=== PATIENT | male | born 2000 | race Caucasian/White ===

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

== ENCOUNTER → 2021-03-03 | Outpatient (CLI) | payer BC | LOC: COL.RAD 07:10 | DX: G95.89 Other specified diseases of spinal cord (principal); M48.04 Spinal stenosis, thoracic region; Q06.4 Hydromyelia | CPT/HCPCS: A9575 ==

== ENCOUNTER 2021-09-17 21:27 | Inpatient (IN) | payer BC ==
[~2021-09-17] VITALS: Ht 172.7 cm; Wt 73.2 kg
[2021-09-17 21:54] LABS: COLLECTION METHOD CLEAN CATCH
[2021-09-17 21:58] LABS: ALANINE AMINOTRANSFERASE 20 U/L (0-55); ALBUMIN 4.9 gm/dL (3.5-5.0); ALKALINE PHOSPHATASE 113 U/L (40-150); ANION GAP 17 mmol/L (7-16); AST,SGOT 27 U/L (5-34); BILIRUBIN,TOTAL 1.1 mg/dL (0.2-1.2); BLOOD UREA NITROGEN 11 mg/dL (9-21); CARBON DIOXIDE 20 mmol/L (22-29); CHLORIDE 106 mmol/L (98-107); CREATININE, serum 1.11 mg/dL (0.72-1.25); GLUCOSE 141 mg/dL (70-99); POTASSIUM 4.1 mmol/L (3.5-4.5); SODIUM 143 mmol/L (136-145); TOTAL PROTEIN 8.5 gm/dL (6.2-8.1)
[2021-09-17 21:59] LABS: ACETAMINOPHEN < 1.0 ug/mL (10-30); ALCOHOL(ethanol),MEDICAL < 10 mg/dL (0-10); SALICYLATE < 5.0 mg/dL (15.0-30.0)
[2021-09-17 22:03] LABS: MUCOUS Present (NOT PRESENT); PH 5 (5-8); SQUAMOUS EPITHELIAL None Seen /hpf (0-10); URINE APPEARANCE Clear (CLEAR/HAZY); URINE BACTERIA None Seen /hpf (NONE SEEN); URINE BILIRUBIN Negative (NEGATIVE); URINE BLOOD Negative (NEGATIVE); URINE COLOR Yellow (YELLOW); URINE GLUCOSE Negative (NEGATIVE); URINE KETONE Negative (NEGATIVE); URINE LEUKOCYTE ESTERASE Negative (NEGATIVE); URINE NITRATE Negative (NEGATIVE); URINE PROTEIN(semi-quant) Negative (NEGATIVE); URINE RBC 0-2 /hpf (0-2); URINE UROBILINOGEN Negative (NEGATIVE)
[2021-09-17 22:15] LABS: TRICYCLIC ANTIDEPRESS URINE NEGATIVE
[2021-09-17 22:17] LABS: TSH w REFLEX 0.735 uIU/mL (0.350-4.940)
[2021-09-17 22:26] LABS: HEMATOCRIT 43.7 % (36.0-47.0); HEMOGLOBIN 14.2 g/dl (12.5-16.1); MEAN CELL VOLUME 90 fl (80.0-95.0); MEAN CORPUSCULAR HEMOGLOBIN 29 pg (26-32); MEAN CORPUSCULAR HGB CONC 33 g/dl (33.0-37.0); PLATELET COUNT 269 K/mm3 (130-400); RED BLOOD COUNT 4.86 M/mm3 (4.20-5.60); REDCELL DISTRIBUTION WIDTH-CV 12.2 % (11.5-14.5)
[2021-09-17] MEDS ORDERED: NEURONTIN600 MG/TAB PO (23:52)
[2021-09-17] MEDS ORDERED: LIORESAL 1010 MG/TAB PO (23:53)
[2021-09-18] VITALS (1140 sets, daily range): BP systolic 121–190; BP diastolic 78–119; PULSE 54–72; TEMP 97.8–98.3; O2SAT 68–100
[2021-09-18] MEDS ORDERED: NEURONTIN100 MG/CAP PO (00:06)
[2021-09-18] MEDS ORDERED: LITHOBID 3300 MG/TAB PO (00:07)
[2021-09-18] MEDS ORDERED: CLARAVIS40 MG PO (00:09)
[2021-09-18] MEDS ORDERED: EFFEXOR XR75 MG/CAP PO (00:10)
[2021-09-18] MEDS ORDERED: VYVANSE40 MG PO (00:11)
[2021-09-18] MEDS ORDERED: ZENZEDI10 MG PO (00:13)
--- NOTE | 2021-09-18 02:50 | NUR ---
PT TO THE FLOOR FROM ED AT 0113. VENT SETTING APPROPRIATE ACCORDING TO REPORT. ALL LINES RUNNING APPROPRIATELY (SEE DRIP FLOW SHEET). GARG IN PLACE AND DRAINING. BP INCREASING, MEASURES TAKEN TO IMPROVE WITH POSITIVE EFFECT, ALL OTHER VITALS WDL. SUICIDE ASSESSMENT UNABLE TO BE COMPLETED AT THIS TIME D/T INTUBATION/SEDATION.
--- NOTE | 2021-09-18 03:30 | NUR ---
UNABLE TO OBTAIN SOME ASSESSMENT DATA D/T PT BEING SEDATED/INTUBATED. WILL NEED INFORMATION GATHERED FROM FAMILY.
--- NOTE | 2021-09-18 05:11 | NUR ---
SEDATION VACATION NOT PERFORMED TONIGHT. ON ADMIT TO FLOOR DRIPS TURNED OFF FOR SEVERAL MINUTES RESULTING IN PT ANXIETY/THRASHING
[2021-09-18 06:08] LABS: ARTERIAL BLD GAS O2 SATURATION 23.2 % (92-100); ARTERIAL BLOOD GAS BASE EXCESS -1.2 (-2-2); ARTERIAL BLOOD GAS HCO3 22.2 meq/L (22-26); ARTERIAL BLOOD GAS PCO2 33.3 mmHg (35-45); ARTERIAL BLOOD GAS PO2 228.3 mmHg (80-100); ARTERIAL BLOOD GAS pH 7.44 (7.35-7.45)
[2021-09-18 09:38] LABS: BASO % 0.2 % (0.0-2.0); EOS # 0.2 K/mm3 (0.0-0.7); EOS % 1.6 % (0.0-4.0); GRAN # 9.6 K/mm3 (1.4-6.5); GRAN % 72.5 % (42.2-75.2); HEMATOCRIT 40.6 % (36.0-47.0); HEMOGLOBIN 13.4 g/dl (12.5-16.1); LYMPH # 2.3 K/mm3 (1.2-3.4); LYMPH % 17.2 % (20.0-51.0); MEAN CELL VOLUME 90 fl (80.0-95.0); MEAN CORPUSCULAR HEMOGLOBIN 30 pg (26-32); MEAN CORPUSCULAR HGB CONC 33 g/dl (33.0-37.0); MONO # 1.1 K/mm3 (0.1-0.6); PLATELET COUNT 242 K/mm3 (130-400); RED BLOOD COUNT 4.53 M/mm3 (4.20-5.60); REDCELL DISTRIBUTION WIDTH-CV 12.4 % (11.5-14.5)
[2021-09-18 09:48] LABS: CALCIUM 8.8 mg/dL (8.4-10.2); CREATININE, serum 0.85 mg/dL (0.72-1.25); MAGNESIUM 1.8 mg/dL (1.6-2.6); POTASSIUM 3.5 mmol/L (3.5-4.5)
--- NOTE | 2021-09-18 11:41 | NUR ---
Initial visit; Nurse with Patient who is unresponsive. Merchant Police offered prayer and will keep Derik in her prayers.
--- NOTE | 2021-09-18 13:04 | NUR ---
UNABLE TO PERFORM THE BEHAVIORAL HEALTH ASSESSMENT AT THIS TIME PATIENT IS INTUBATED AND SEDATED.
--- NOTE | 2021-09-18 19:32 | NUR ---
PATIENT ON MINIMAL SEDATION AND NOT RESPONSIVE IN A PURPOSEFUL WAY, HOWEVER, PATIENT HAD SEIZURES THIS MORNING SO I DID NOT WANT TO COMPLETELY STOP ALL SEDATION.
--- NOTE | 2021-09-18 20:00 | NUR ---
PM ASSESSMENT COMPLETE. PT'S FATHER JUST HEADING HOME, STATES WILL BE BACK IN AM. PT APPEARS TO BE TOLERATING VENTILATOR WELL, DOES COUGH WHEN ORAL CARE PROVIDED. COPIOUS ORAL SECRETIONS NOTED, CLEAR. FISTS CLENCHED, WASHCLOTHES IN PLACE TO KEEP HANDS SLIGHTLY OPEN. PLANTARFLEXION NOTED TO FEET. NO MEANINGFUL RESPONSE, DOES OPEN EYES TO TOUCH, ORAL CARE. WILL TITRATED SEDATING AND PAIN MEDICATIONS INDICATED. VSS AT THIS TIME, WILL CONTINUE TO MONITOR.
--- NOTE | 2021-09-18 20:00 | NUR ---
BEHAVIORAL HEALTH ASSESSMENT NOT COMPLETED PT IS INTUBATED AND SEDATED AT THIS TIME.
[2021-09-19] VITALS (949 sets, daily range): BP systolic 113–138; BP diastolic 72–94; PULSE 69–87; TEMP 97.7–100; O2SAT 94–100
--- NOTE | 2021-09-19 | NUR ---
MIDNIGHT ASSESSMENT COMPLETE. FEET NOTED AT THIS TIME TO BE IN PLANTARFLEXION AND INTERNALLY ROTATED, BILAT LEGS TENSE. PT DOES WIGGLE TOES INTERMITTENTLY BUT NOT TO COMMAND. WRIST RESTRAINTS REMOVED AND NO NOTED ABNOMAL POSTURING/MOVEMENT NOTED TO BUE. FINGERS REMAIN CLENCHED INTO FIST. PUPILS 5MM BILAT AND HYPERREACTIVE, CONSTRICT TO LIGHT THEN DILATE AGAIN QUICKLY. PT HAS NO MEANINGFUL RESPONSE TO VOICE OR COMMANDS, BUT DOES OPEN EYES AND COUGH WHEN TOUHCED OR ORAL CARE ADMINISTERED. TITRATED UP FENTANYL AND PROPOFOL AT THIS TIME DUE TO COUGH AND RESTLESSNESS AT REPOSITIONING. TAMMY VOGEL ON UNIT AT THIS TIME AND MADE AWARE OF FOOT POSITIONING. WILL CONTINUE TO MONITOR.
--- NOTE | 2021-09-19 04:17 | NUR ---
0400 ASSESSMENT COMPLETE. PT OPENS EYES TO CALLING HIS NAME, HOWEVER DOES NOT TRACK. FEET REMAIN IN PLANTAR FLEXSION WITH INTERNAL ROTATION, DOES WIGGLE TOES, NO HAND GRASP. RESPONDS TO ORAL CARE WITH COUGHING BUT OTHERWISE TOLERATING VENTILATOR WELL. PIV'S WNL, NO SIGNS OF PHLEBITIS OR INFILTRATION. WILL CONTINUE TO MONITOR.
[2021-09-19 05:11] LABS: ARTERIAL BLD GAS O2 SATURATION 98.8 % (92-100); ARTERIAL BLD GAS TCO2 CT 26.4; ARTERIAL BLOOD GAS HCO3 25.2 meq/L (22-26); ARTERIAL BLOOD GAS PCO2 38.7 mmHg (35-45); ARTERIAL BLOOD GAS pH 7.43 (7.35-7.45)
[2021-09-19 05:13] LABS: ARTERIAL BLOOD GAS PO2 146.7 mmHg (80-100)
--- NOTE | 2021-09-19 05:17 | NUR ---
PT DOES NOT MEET WEANING REQUIREMENTS AT THIS TIME
--- NOTE | 2021-09-19 06:18 | NUR ---
POISON CONTROL CALLED FOR UPDATE ON PT. DID STATE BACLOFEN CAN CAUSE MUSCLE RIGIDITY AND POSTURING, MIMICS BRAIN . REQUESTED CK BE ADDED TO MORNING LABS WELL.
[2021-09-19 06:26] LABS: BASO # 0.1 K/mm3 (0.0-0.2); BASO % 0.4 % (0.0-2.0); EOS # 0.2 K/mm3 (0.0-0.7); EOS % 1.8 % (0.0-4.0); GRAN # 7.5 K/mm3 (1.4-6.5); GRAN % 67.7 % (42.2-75.2); HEMATOCRIT 37.3 % (36.0-47.0); HEMOGLOBIN 12.1 g/dl (12.5-16.1); LYMPH # 2.5 K/mm3 (1.2-3.4); LYMPH % 22.1 % (20.0-51.0); MEAN CELL VOLUME 90 fl (80.0-95.0); MEAN CORPUSCULAR HEMOGLOBIN 29 pg (26-32); MEAN CORPUSCULAR HGB CONC 32 g/dl (33.0-37.0); MEAN PLATELET VOLUME 10.9 fl (7.4-10.4); MONO # 0.9 K/mm3 (0.1-0.6); MONO % 7.6 % (1.7-9.3); PLATELET COUNT 200 K/mm3 (130-400); RED BLOOD COUNT 4.14 M/mm3 (4.20-5.60); REDCELL DISTRIBUTION WIDTH-CV 12.8 % (11.5-14.5)
[2021-09-19 06:41] LABS: CALCIUM 8.5 mg/dL (8.4-10.2); CREATININE, serum 0.76 mg/dL (0.72-1.25); POTASSIUM 3.8 mmol/L (3.5-4.5)
--- NOTE | 2021-09-19 07:31 | NUR ---
REPORT RECEIVED FROM YUKO CORBIN; PATIENT DID WELL OVERNIGHT AND IS CURRENTLY SEDATED AND RESTING COMFORTABLY. PATIENT STILL ON VENTILATOR AND IS MORE RESPONSIVE THAN YESTERDAY, HE WILL OPEN EYES IN RESPONSE TO HIS NAME. SEDATION WAS INCREASED SLIGHTLY FROM END OF SHIFT YESTERDAY, WITH FENT RUNNING AT 75 MCG AND PROPOFOL AT 15 MCG. NS IS STILL RUNNING AT 125. VITAL SIGNS ARE WITHIN NORMAL LIMITS THIS MORNING.
--- NOTE | 2021-09-19 07:34 | NUR ---
STILL UNABLE TO PERFORM THE BEHAVIORAL HEALTH ASSESSMENT PATIENT REMAINS SEDATED AND INTUBATED THIS MORNING. IF PATIENT IS EXTUBATED TODAY, WILL RESUME ASSESSMENT.
--- NOTE | 2021-09-19 19:31 | NUR ---
SEDATION VACATION DONE THIS MORNING TO SEE IF PATIENT WAS ALERT ENOUGH TO BE EXTUBATED; PATIENT WAS RESPONSIVE DURING SEDATION VACATION AND IS MORE ALERT TODAY THAN YESTERDAY, TODAY PATIENT WILL RESPOND TO SPEECH AND FOLLOW COMMANDS.
--- NOTE | 2021-09-19 20:32 | NUR ---
UNABLE TO PERFORM BHA DUE TO PT BEING INTUBATED/SEDATED
[2021-09-20] VITALS (1222 sets, daily range): BP systolic 116–134; BP diastolic 70–80; PULSE 70–89; TEMP 100–101.6; O2SAT 78–100
[2021-09-20 04:36] LABS: ARTERIAL BLD GAS TCO2 CT 24.4; ARTERIAL BLOOD GAS BASE EXCESS -0.5 (-2-2); ARTERIAL BLOOD GAS HCO3 23.3 meq/L (22-26); ARTERIAL BLOOD GAS PCO2 35.8 mmHg (35-45); ARTERIAL BLOOD GAS PO2 92.1 mmHg (80-100); ARTERIAL BLOOD GAS pH 7.43 (7.35-7.45)
--- NOTE | 2021-09-20 05:05 | NUR ---
PT IS STILL UNDER CLOSE MONITORING FOR COMING OFF OF OVERDOSE OF MEDICATIONS
[2021-09-20 07:01] LABS: BILIRUBIN,TOTAL 1.6 mg/dL (0.2-1.2); CALCIUM 8.2 mg/dL (8.4-10.2); CREATININE, serum 0.77 mg/dL (0.72-1.25); MAGNESIUM 1.7 mg/dL (1.6-2.6); PHOSPHOROUS 4.4 mg/dL (2.3-4.7)
--- NOTE | 2021-09-20 07:55 | NUR ---
BEDSIDE FIT REPORT GIVEN. PATIENT INTUBATED, SEDATED, WITH TWO PIV, GARG. PATIENT APPEARS TO BE SEDATED COMFORTABLY
--- NOTE | 2021-09-20 09:00 | NUR ---
PATIENT IS INTUBATED AND SEDATED.
[2021-09-20 09:20] LABS: BASO % 0.3 % (0.0-2.0); EOS # 0.1 K/mm3 (0.0-0.7); EOS % 0.4 % (0.0-4.0); GRAN # 10.7 K/mm3 (1.4-6.5); GRAN % 80.9 % (42.2-75.2); HEMOGLOBIN 11.9 g/dl (12.5-16.1); LYMPH # 1.7 K/mm3 (1.2-3.4); LYMPH % 12.5 % (20.0-51.0); MEAN CELL VOLUME 90 fl (80.0-95.0); MEAN CORPUSCULAR HEMOGLOBIN 30 pg (26-32); MEAN CORPUSCULAR HGB CONC 33 g/dl (33.0-37.0); MEAN PLATELET VOLUME 11.7 fl (7.4-10.4); MONO # 0.7 K/mm3 (0.1-0.6); MONO % 5.5 % (1.7-9.3); PLATELET COUNT 209 K/mm3 (130-400); RED BLOOD COUNT 4.02 M/mm3 (4.20-5.60); REDCELL DISTRIBUTION WIDTH-CV 12.9 % (11.5-14.5)
[2021-09-20 09:22] LABS: HEMATOCRIT 36.1 % (36.0-47.0)
--- NOTE | 2021-09-20 09:34 | NUR ---
Product Picker met with patient's parents, Anne Marie (ph#[phone]) and Marcelino (ph#[phone]) to complete initial intake as patient is currently intubated. Patient is having sedation vacation at this time. Anne Marie advised that patient lives with them here in [place] and sees Dr. Toscano for primary care. Patient obtains medications from [facility]. Alejandro's parents advised patient has a recent titration study for sleep apnea and he is being transitioned to a bipap. Patient has seen several neurologists and parents report they are working to get patient in to a new neurologist in [place]. Patient is a student at [employer] and is normally independent with ADLS. Patient sees a psychiatrist and therapist at [facility] and had recently been increased to once a week therapy due to concerning statements he had made about not wanting to live anymore. Patient does not have Advance Directives. Patient is not and his parents are his legal next of kin. SW will continue to follow for discharge needs.
--- NOTE | 2021-09-20 10:48 | NUR ---
PATIENT RESEDATED AT PREVIOUS SEDATION LEVELS AFTER BEING REITUBATED PER DR BUSH ORDER
--- NOTE | 2021-09-20 10:50 | NUR ---
PATIENT RE SEDTATED TO PREVIOUS SEDATION LEVELS AFTER BEING RE INTUBATED PER DR. ELEAZAR ARIAS
--- NOTE | 2021-09-20 10:56 | NUR ---
PT REINTUBATED TO PREVIOUS SETTINGS. INTUBATION WENT SMOOTHLY. TUBE SECURE SAME PLACE IT WAS PREVIOUS 24 AT THE TEETH.
--- NOTE | 2021-09-20 11:00 | NUR ---
0915 PATIENTS SEDATION ON STANDBY PER DR BUSH. FAMILY AT BEDSIDE. PATIENT RESPONDING TO PAIN BUT NOT FOLLOWING COMMANDS. 0930 PATIENT VERY AGGITATED. MD NOTIFIED AND AT BEDSIDE. PATIENT KICKING AND ATTEMPTING TO SELF EXTUBATE. MD ORDERED TO EXTUBATE NOW. 0950 PATIENT EXTUBATED. PATIENT IS VERY RESTLESS, THROWING UP, KICKING AND PUNCHING. 1000 PATIENT HAVING A HARD TIME PROTECTING AIRWAY. DR. BUSH STILL AT BEDSIDE. ORDERS TO RE INTUBATE PATIENT TO PROTECT AIRWAY. 1021 PATIENT INTUBATED WITH 8.0 ET TUBE 23 AT THE TEETH. PATIENT INTUBATED WITH SUCCS AND PROPOFOL. ORDER TO RESTART PREVIOUS SEDATION, START ANTIBIOTICS, AND GET A PICC LINE PLACED. PATIENT TOLERATED INTUBATION WITH NO COMPLICATIONS. WILL CONTINUE TO MONITOR PATIENT AND WEAN SEDATION AND VENT ORDERED.
--- NOTE | 2021-09-20 11:38 | NUR ---
PATIENT INTUBATED AND SEDATED.
[2021-09-20 12:23] LABS: ARTERIAL BLD GAS O2 SATURATION 93.7 % (92-100); ARTERIAL BLD GAS TCO2 CT 24.4; ARTERIAL BLOOD GAS BASE EXCESS -0.4 (-2-2); ARTERIAL BLOOD GAS HCO3 23.3 meq/L (22-26); ARTERIAL BLOOD GAS PCO2 35.3 mmHg (35-45); ARTERIAL BLOOD GAS PO2 67.5 mmHg (80-100); ARTERIAL BLOOD GAS pH 7.44 (7.35-7.45)
--- NOTE | 2021-09-20 12:35 | NUR ---
PATIENT INTUBATED AND SEDATED
--- NOTE | 2021-09-20 14:59 | NUR ---
PATIENT IS SEDATED AND INTUBATED. UNABLE TO ASSESS AT THIS TIME.
--- NOTE | 2021-09-20 16:39 | NUR ---
PATIENT FEVER INCREASING. MD AWARE. WILL APPLY ICE BAGS DUE TO NOT BEING ABLE TO GIVE TYLENOL AGAIN UNTIL 7.
--- NOTE | 2021-09-20 17:04 | NUR ---
PATIENT IS SEDATED AND INTUBATED. SID AT THIS TIME
--- NOTE | 2021-09-20 18:03 | NUR ---
PATIENT SEDATED AND INTUBATED; UNABLE TO ASSESS AT THIS TIME
--- NOTE | 2021-09-20 20:25 | NUR ---
UNABLE TO COMPLETE BEHAVIORAL HEALTH ASSESSMENT DUE TO PT BEING INTUBATED/SEDATED
[2021-09-21] VITALS (1413 sets, daily range): BP systolic 101–119; BP diastolic 59–63; PULSE 80–118; TEMP 99.1–101.8; O2SAT 94–100
--- NOTE | 2021-09-21 05:20 | NUR ---
SEDATION ON HOLD DURING AM LAB DRAW. PT WAKING UP VERY QUICKLY, BITING AT TUBE, PULLING AGAINST RESTRAINTS. SEDATION RESUMED AT PREVIOUS RATE
[2021-09-21 05:28] LABS: ARTERIAL BLD GAS O2 SATURATION 97.8 % (92-100); ARTERIAL BLD GAS TCO2 CT 21.5; ARTERIAL BLOOD GAS BASE EXCESS -3.1 (-2-2); ARTERIAL BLOOD GAS HCO3 20.5 meq/L (22-26); ARTERIAL BLOOD GAS PCO2 32.1 mmHg (35-45); ARTERIAL BLOOD GAS PO2 108.3 mmHg (80-100); ARTERIAL BLOOD GAS pH 7.42 (7.35-7.45)
[2021-09-21 05:44] LABS: BASO # 0.1 K/mm3 (0.0-0.2); BASO % 0.4 % (0.0-2.0); EOS # 0.1 K/mm3 (0.0-0.7); EOS % 0.8 % (0.0-4.0); GRAN % 83.2 % (42.2-75.2); HEMOGLOBIN 10.7 g/dl (12.5-16.1); LYMPH # 1.1 K/mm3 (1.2-3.4); LYMPH % 8.7 % (20.0-51.0); MEAN CELL VOLUME 92 fl (80.0-95.0); MEAN CORPUSCULAR HEMOGLOBIN 29 pg (26-32); MEAN CORPUSCULAR HGB CONC 32 g/dl (33.0-37.0); MEAN PLATELET VOLUME 11.2 fl (7.4-10.4); MONO # 0.9 K/mm3 (0.1-0.6); MONO % 6.5 % (1.7-9.3); PLATELET COUNT 170 K/mm3 (130-400); RED BLOOD COUNT 3.64 M/mm3 (4.20-5.60); REDCELL DISTRIBUTION WIDTH-CV 13.2 % (11.5-14.5)
[2021-09-21 05:53] LABS: HEMATOCRIT 33.6 % (36.0-47.0)
[2021-09-21 06:02] LABS: CREATININE, serum 0.75 mg/dL (0.72-1.25); MAGNESIUM 1.9 mg/dL (1.6-2.6); PHOSPHOROUS 2.5 mg/dL (2.3-4.7); POTASSIUM 3.5 mmol/L (3.5-4.5)
--- NOTE | 2021-09-21 06:30 | NUR ---
REC'D REPORT FROM YUKO SAMUELS. DURING ASSESSMENT PT IS NOTED TO BE SEDATED BUT DOES OPEN EYES TO VOICE. ALL LINES AND TUBE PLACEMENTS CHECKED AND VERIFIED.
[2021-09-21 16:57] LABS: COLLECTION METHOD IN
[2021-09-21 17:13] LABS: MUCOUS Present (NOT PRESENT); PH 5 (5-8); SQUAMOUS EPITHELIAL 0-2 /hpf (0-10); URINE APPEARANCE Clear (CLEAR/HAZY); URINE BACTERIA None Seen /hpf (NONE SEEN); URINE BILIRUBIN Negative (NEGATIVE); URINE BLOOD 1+ (NEGATIVE); URINE COLOR Yellow (YELLOW); URINE GLUCOSE 1+ (NEGATIVE); URINE KETONE Negative (NEGATIVE); URINE LEUKOCYTE ESTERASE Negative (NEGATIVE); URINE NITRATE Negative (NEGATIVE); URINE PROTEIN(semi-quant) Negative (NEGATIVE); URINE RBC 20-50 /hpf (0-2); URINE UROBILINOGEN >=4.0 (NEGATIVE); URINE WBC 0-2 /hpf (0-2)
--- NOTE | 2021-09-21 17:32 | NUR ---
SEDATION VACATION NOT APPRORIATE AT THIS TIME. PT BECOMES AGITATED AND RESTLESS AND ATTEMPTS TO PULL AT LINES W/ EVEN MINIMAL STIMULATION.
--- NOTE | 2021-09-21 20:00 | NUR ---
PM ASSESSMENT COMPLETE. OG RESIDUAL FOUND TO BE BLOODY, WELL SECRETION IN MARVIN TUBING. CALL TO TAMMY VOGEL TO MAKE AWARE. H&H ORDERED AND LOVENOX HELD FOR THE MORNING. PT WELL SEDATED AT THIS TIME, TOLERATING VENTILATOR WITHOUT DIFFICULITY. RESPONDS TO PAIN, NOT ALERT/FOLLOWING COMMANDS AT THIS TIME. PLAN TO HOLD TUBE FEED IN AM AND STOP SEDATION AROUND [address] BUSH FOR POSSIBLE EXTUBATION. PT'S FATHER LEFT ROOM ABOUT 1930, DISCUSSED PLAN WITH HIM AND MADE AWARE OF VISITING POLICY WITH SUICIDE ATTEMPT ONCE PT AWAKE AND ALERT, VISITORS WILL BE LIMITED UNTIL PT SCREENED. WILL CONTINUE TO MONITOR.
[2021-09-21 21:05] LABS: HEMATOCRIT 30.1 % (36.0-47.0); HEMOGLOBIN 9.8 g/dl (12.5-16.1)
[2021-09-22] VITALS (1131 sets, daily range): BP systolic 106–138; BP diastolic 53–87; PULSE 63–98; TEMP 98.6–102.6; O2SAT 70–100
[2021-09-22 04:41] LABS: ARTERIAL BLD GAS O2 SATURATION 95.7 % (92-100); ARTERIAL BLOOD GAS BASE EXCESS -3.7 (-2-2); ARTERIAL BLOOD GAS HCO3 21.7 meq/L (22-26); ARTERIAL BLOOD GAS PCO2 40.9 mmHg (35-45); ARTERIAL BLOOD GAS PO2 78.8 mmHg (80-100); ARTERIAL BLOOD GAS pH 7.34 (7.35-7.45)
--- NOTE | 2021-09-22 05:06 | NUR ---
PT MEETS REQUIREMENTS TO WEAN TOLERATED.
[2021-09-22 05:43] LABS: BASO % 0.3 % (0.0-2.0); EOS # 0.1 K/mm3 (0.0-0.7); EOS % 0.5 % (0.0-4.0); GRAN # 9.8 K/mm3 (1.4-6.5); GRAN % 82.5 % (42.2-75.2); LYMPH % 8.2 % (20.0-51.0); MEAN CELL VOLUME 96 fl (80.0-95.0); MEAN CORPUSCULAR HEMOGLOBIN 30 pg (26-32); MEAN CORPUSCULAR HGB CONC 31 g/dl (33.0-37.0); MEAN PLATELET VOLUME 11.4 fl (7.4-10.4); MONO # 0.9 K/mm3 (0.1-0.6); MONO % 7.6 % (1.7-9.3); PLATELET COUNT 173 K/mm3 (130-400); RED BLOOD COUNT 3.36 M/mm3 (4.20-5.60); REDCELL DISTRIBUTION WIDTH-CV 13.6 % (11.5-14.5)
[2021-09-22 05:54] LABS: HEMATOCRIT 32.3 % (36.0-47.0)
[2021-09-22 05:57] LABS: CREATININE, serum 0.77 mg/dL (0.72-1.25); POTASSIUM 4.6 mmol/L (3.5-4.5)
--- NOTE | 2021-09-22 06:33 | NUR ---
SEDATION VACATION WEANING AND GOAL TO STOP SEDATION AT [address] BUSH FOR POSSIBLE EXTUBATION.
--- NOTE | 2021-09-22 07:00 | NUR ---
REPORT RECEIVED FROM YUKO CORBIN; PATIENT CURRENTLY ON WEANING TRIAL WITH PLANS TO EXTUBATE THIS MORNING. PARENTS ARE AT THE BEDSIDE IS RT; SEDATION IS OFF AND PATIENT IS NOT TOLERATING THE VENT WELL AT THIS POINT.
--- NOTE | 2021-09-22 07:30 | NUR ---
SEDATION TITRATED DOWN SINCE 0500, COMPLETELY OFF AT 0700. AT 0705 PT EXTREMELY AGITATED, ATTEMPTING TO PULL TUBE DESPITE RESTRAINTS IN PLACE. PT'S FATHER AND MOTHER AT BEDSIDE AND TWO RNS, RT CALLED AND PRESENT. DR. BUSH CALLED, PT ABLE TO FOLLOW COMMANDS, NODS HEAD THAT WANTS TUBE OUT NOW. DR. BUSH STATES OK TO EXTUBATED. PT EXTUBATED AT 0710. BLOODY MUCOUS EXPECTORATED. OXYMASK PLACED ON PT AT 2L, PULSE OXIMETRY 95%. PT SPEAKING, STATES WANTS PARENTS HERE. STATES ABSOLUTELY NO THOUGHTS OF SUICIDE OR SELF HARM, STATES THAT WAS "STUPID". REPORT GIVEN AT THIS TIME TO YUKO CHANEY FOR DAYSHIFT. PARENTS CURRENTLY PRESENT IN ROOM PER PT REQUEST.
--- NOTE | 2021-09-22 09:41 | NUR ---
CATHETER STILL IN PLACE UNTIL SEDATION FULLY WEARS OFF AND PATIENT'S COORDINATION IS BETTER
--- NOTE | 2021-09-22 20:06 | NUR ---
PATIENT HAS BEEN PLEASANT POST EXTUBATION AND NO LONGER HAS ANY SUICIDAL IDEATIONS; PATIENT REGRETS WHAT HE DID AND RECOGNIZES THAT IT WAS A HUGE MISTAKE. PATIENT HAS NO BEHVIORAL ISSUES AT THIS TIME.
[2021-09-23] VITALS (538 sets, daily range): BP systolic 117–136; BP diastolic 67–94; PULSE 93–114; TEMP 98.3–99.1; O2SAT 65–100
--- NOTE | 2021-09-23 02:30 | NUR ---
PT HAS BEEN CONFUSED AND FIDGETY TONIGHT, NEEDING REORIENTATION AND REEDUCATION ON MONITORING/TUBES/WIRES. PT ORIENTED TO SELF, KNOWS HE IS IN THE HOSPITAL AND EVENTS LEADING TO ADMISSION. HOWEVER IS FORGETFUL OF CURRENT LIMITATIONS DUE TO WEAKNESS AND RECOVERY PROCESS. AT THIS TIME PT HELPED INTO RECLINING CHAIR WITH CHAIR ALARM IN PLACE HAS BEEN AWAKE AND UNCOMFORTABLE IN BED. TRANSFERRED WELL WITH ONE PERSON SBA, HAS CALL LIGHT AND WATCHING TV. STATES WANTS TO CALL PARENTS BUT REMINDED OF TIME AND ENCOURAGED TO LET PARENTS SLEEP UNTIL THEY COME VISIT IN AM. PT AGREES AT THIS TIME. PT HAS NOT SLEPT, MANUEL ALCARAZ APRN MADE AWARE BUT SHE IS HESITANT TO ORDER ANY SLEEPING AIDS PT STILL RECOVERING FROM OVERDOSE. WILL CONTINUE TO MONITOR.
--- NOTE | 2021-09-23 04:02 | NUR ---
PT REQUESTING CATHETER BE TAKEN OUT, CAUSING HIM A LOT OF DISCOMFORT. REMOVED AT THIS TIME, 10ML ASPIRATED FROM BALLOON, BALLOON INTACT. PT GIVEN URINAL.
--- NOTE | 2021-09-23 07:45 | NUR ---
Patient restless in bed ; asking for his dad multiple times. Father is on his way to the hospital and patient notified. Observed pulling at picc line multiple times. Nursing staff attempting to re-orient and make him aware that the picc line brownlee be pulled on for his safety. Patient states that he understands. Will continue to monitor.
[2021-09-23 08:06] LABS: BASO % 0.4 % (0.0-2.0); EOS # 0.1 K/mm3 (0.0-0.7); EOS % 1.4 % (0.0-4.0); GRAN # 7.9 K/mm3 (1.4-6.5); GRAN % 78.6 % (42.2-75.2); LYMPH % 9.8 % (20.0-51.0); MEAN CORPUSCULAR HEMOGLOBIN 29 pg (26-32); MEAN CORPUSCULAR HGB CONC 32 g/dl (33.0-37.0); MEAN PLATELET VOLUME 10.2 fl (7.4-10.4); MONO # 0.9 K/mm3 (0.1-0.6); MONO % 8.7 % (1.7-9.3); PLATELET COUNT 232 K/mm3 (130-400); RED BLOOD COUNT 3.75 M/mm3 (4.20-5.60); REDCELL DISTRIBUTION WIDTH-CV 12.9 % (11.5-14.5)
[2021-09-23 08:11] LABS: HEMATOCRIT 33.9 % (36.0-47.0); MEAN CELL VOLUME 90 fl (80.0-95.0)
[2021-09-23 08:21] LABS: CALCIUM 8.9 mg/dL (8.4-10.2); CREATININE, serum 0.71 mg/dL (0.72-1.25); POTASSIUM 3.4 mmol/L (3.5-4.5)
--- NOTE | 2021-09-23 09:00 | NUR ---
Patient occasionally restless in bed but has been cooperative with staff and family. Appears to be content with his parents in the room. Alert and oriented with some confusion surrounding the current day. Becomes easily distracted and sometimes needs re-direction when assisting with ADL's. Will continue to monitor.
--- NOTE | 2021-09-23 21:00 | NUR ---
PT ALERT, ORIENTED TO SELF AND PLACE HOWEVER VERY FORGETFUL, IMPULSIVE AND RESTLESS. PT HAS NOT SLEPT AT ALL SINCE 0700 09/22/21. APPEARS VERY EXHAUSTED BUT UNABLE TO RELAX. SOME VISUAL HALLUCINATIONS, NEEDING FREQUENT REORIENTING AND REDIRECTING. FATHER CURRENTLY HERE WITH PT IN ROOM. CALL TO DR. LANDRY WITH [facility] FOR SOMETHING TO HELP PT SLEEP. WILL FOLLOW. SEIZURE PADS ON BED AND BED ALARM ON. WILL CONTINUE TO MONITOR.
[2021-09-24] VITALS (7 sets, daily range): BP systolic 127–138; BP diastolic 78–95; PULSE 88–98; TEMP 98–98.2; O2SAT 99
--- NOTE | 2021-09-24 06:00 | NUR ---
PT SLEPT APPROXIMATELY 2.5 HOURS THIS PM SHIFT. FROM 0400, PT AWAKE AND ALERT, ORIENTED AGAIN TO PLACE AND SITUATION. ABLE TO HAVE APPROPRIATE CONVERSATIONS AND FOLLOW DIRECTIONS, CALM DEMEANOR. HAVING SOME HALLUCINATIONS OF HIS CATS BEING IN THE ROOM, HOWEVER AFTER A TIME RECOGNIZED THAT HE WAS HALLUCINATING AND AGREES THE CATS ARE NOT HERE. PT STATES NO NEEDS AT THIS TIME.
--- NOTE | 2021-09-24 07:00 | NUR ---
PT RESTING IN BED. VSS. PT HAS CALL LIGHT WITHIN REACH. NO NEEDS AT THIS TIME.
--- NOTE | 2021-09-24 13:23 | NUR ---
Vending Machine Collector met with patient who is now extubated. Patient's parents are at bedside. Patient reports he is feeling better but can't believe he was "asleep" for a few days. Patient has upcoming telehealth appointment with his psychiatrist, Dr. Gatica. Patient to have [facility] screen once medically cleared.
--- NOTE | 2021-09-24 19:23 | NUR ---
REPORT CALLED TO YESI HUNTLEY AT 1840. PT TRANSPORTED UP TO ROOM 309 BY WHEELCHAIR. MOM ACCOMPAINED TO ROOM. CHERRI HUNTLEY NOTIFIED OF ARRIVAL.
[2021-09-25] VITALS (7 sets, daily range): BP systolic 119–133; BP diastolic 65–82; PULSE 89–101; TEMP 98–98.4
--- NOTE | 2021-09-25 05:30 | NUR ---
ASSESSMENT COMPLETE FOR THIS SHIFT. PT SITTING ON THE SIDE OF HIS BED WITH HIS FATHER BY HIS SIDE. PT A&O X 3. PT COMPLAINED OF SOME ARM TIGHTNESS/PAIN. PT REQUESTED AND GIVE TYLEONOL. TYLENOL SEEMED TO BE EFFECTIVE FOR PT. PT DENIES CHEST, PALPIATATIONS, N,V,D, SOB OR DIZZINESS. PT GIVEN EVENING MEDS. ABOUT 30MINS AFTER MEDS WERE GIVEN, PT'S FATHER CALLED OUT. PT WAS MAKING JERKING MOTIONS, WAS NO LONGER LUCID AND DIDN'T SEEM KNOW WHERE HE WAS. HOSPITALIST CALLED. I WAS REFERRED TO NEUROLOGY. DR. PRITCHETT CALLED. ATIVAN 1GM PO ORDERED AND GIVEN. PT SEEMED TO NOT JECK MUCH AND FINALLY FALL ASLEEP. WILL CONTNIUE MONITOR PT. CALL LIGHT WITHIN REACH.
--- NOTE | 2021-09-25 06:00 | NUR ---
PT SEEMED A LOT BETTER THIS MORNING. MORE LIKE HE WAS DURING HIS ASSESSNENT. NO JECKING, CONFUSION, AND HE KNEW WHERE HE WAS. CALL LIGHT WITHIN REACH.
[2021-09-25 06:19] LABS: CALCIUM 9.8 mg/dL (8.4-10.2); CREATININE, serum 0.73 mg/dL (0.72-1.25); MAGNESIUM 2.1 mg/dL (1.6-2.6); POTASSIUM 4.1 mmol/L (3.5-4.5)
[2021-09-25 06:24] LABS: HEMOGLOBIN 12.3 g/dl (12.5-16.1); MEAN CELL VOLUME 88 fl (80.0-95.0); MEAN CORPUSCULAR HEMOGLOBIN 29 pg (26-32); MEAN CORPUSCULAR HGB CONC 33 g/dl (33.0-37.0); MEAN PLATELET VOLUME 10.1 fl (7.4-10.4); RED BLOOD COUNT 4.19 M/mm3 (4.20-5.60); REDCELL DISTRIBUTION WIDTH-CV 12.6 % (11.5-14.5)
[2021-09-25 06:25] LABS: HEMATOCRIT 36.8 % (36.0-47.0); PLATELET COUNT 339 K/mm3 (130-400)
[2021-09-25 06:57] LABS: BAND 2 % (0-10); EOSINOPHIL 5 % (0-4); LYMPHOCYTE 28 % (20.0-51.0); METAMYELOCYTE 1 % (0-0); NEUTROPHILS 57 % (42.0-75.2)
[2021-09-25 06:58] LABS: HYPOCHROMIA 1+; PLATELET ESTIMATE DECREASED (NORMAL)
--- NOTE | 2021-09-25 09:30 | NUR ---
PATIENT DOING WELL THIS MORNING WITH NO COMPLAINTS. CREDIT ADMINISTRATOR REPORTS THAT PATIENT IS TO HAVE [facility] SCREEN TODAY, PATIENT STATES HE HAS BEEN CLEARED BY HIS OUTPATIENT PSYCHIATRIST TO RETURN HOME AND FOLLOW UP OUTPATIENT. DISCUSSED THIS WITH HOSPITALIST WHO WILL MAKE DECISION. NO SEIZURE ACITIVITY REPORTED OR HALLUCINATIONS. POISON CONTROL CALLED TO GET PATIENT UPDATE AND WILL CLOSE CASE FROM HERE. A&O X4. CONTINENT. ABLE TO AMBUALTE ON OWN WITHOUT ISSUE. FEEDS SELF. TAKES MEDS WHOLE WITHOUT ISSUE.
--- NOTE | 2021-09-25 15:09 | NUR ---
SW informed that patient would need documenation sent to [facility] for a screen. JULIÁN spoke with BRICK EXTRUDER OPERATOR and stated that physician would like to wait another day before sending reviewing documenation for screen. JULIÁN will obtain further directon on sending documenation to [facility] for screen on 09/26/2021. JULIÁN will continue to follow.
[2021-09-26 03:53] VITALS: BP 102/53; PULSE 93; TEMP 98.1
--- NOTE | 2021-09-26 05:45 | NUR ---
ASSESSMENT COMPLETE FOR THIS SHIFT. PT SITTING UP IN BED WITH HIS FATHER BY HIS SIDE. PT REFUSED SEROQUEL. PT AND HIS FATHER BELIEVE THE DRUG IS WHAT CAUSED PT'S JERKING AND INCOHERENT EPISODE THE NIGHT BEFORE. PT COMPLAINED OF SOME GENERALIZED PAIN. PT REQUESTED AND GIVEN TYLENOL FOR PAIN. PT FELT THE TYLENOL WAS EFFECTIVE FOR HIS PAIN. PT DENIED CHEST PAIN, PALPITATIONS, SOB, N,V,D OR DIZZINESS. PT, OTHERWISE, HAD A PRETTY UNEVENTFUL NIGHT. PT EXPRESSED NO OTHER NEEDS AT THIS TIME. CALL LIGHT WITHIN REACH.
[2021-09-26 08:00] VITALS: BP 119/63; PULSE 92; TEMP 98
[2021-09-26 08:10] LABS: HEMOGLOBIN 12.8 g/dl (12.5-16.1); MEAN CELL VOLUME 88 fl (80.0-95.0); MEAN CORPUSCULAR HEMOGLOBIN 29 pg (26-32); MEAN CORPUSCULAR HGB CONC 33 g/dl (33.0-37.0); MEAN PLATELET VOLUME 10.1 fl (7.4-10.4); PLATELET COUNT 380 K/mm3 (130-400); RED BLOOD COUNT 4.42 M/mm3 (4.20-5.60); REDCELL DISTRIBUTION WIDTH-CV 12.7 % (11.5-14.5)
[2021-09-26 08:32] LABS: CALCIUM 9.6 mg/dL (8.4-10.2); CREATININE, serum 0.77 mg/dL (0.72-1.25)
[2021-09-26] MEDS ORDERED: AMOXICILLIN 8751 TAB PO (09:59)
[2021-09-26] MEDS ORDERED: LAMICTAL 25MG T25 MG PO (10:05)
[2021-09-26] MEDS ORDERED: KEPPRA250 MG PO (10:07)
[2021-09-26 10:16] LABS: EOSINOPHIL 2 % (0-4); LYMPHOCYTE 25 % (20.0-51.0); MYELOCYTE 1 % (0-0); NEUTROPHILS 67 % (42.0-75.2)
[2021-09-26 10:18] LABS: HYPOCHROMIA 1+; PLATELET ESTIMATE NORMAL (NORMAL)
[2021-09-26 11:21] VITALS: BP 120/62; PULSE 92; TEMP 98.2
--- NOTE | 2021-09-26 12:28 | NUR ---
PICC LINE TO RIGHT UPPER ARM REMOVED AT THIS TIME BY CHARGE NURSE KATERINA. PATIENT TO BE MONITORED FOR 30 MINUTES POST REMOVAL.
--- NOTE | 2021-09-26 13:49 | NUR ---
Geographic Information Systems Analyst was contacted by Hermelinda HUNTLEY who informs has called [facility] to request a screen and they informed they are unaware of patient. Patient is medically cleared. This Geographic Information Systems Analyst contacted Jackie at [facility], who informs did not receive any referral for patient yesterday, but willing to accept, requesting clinicals faxed. Geographic Information Systems Analyst faxed requested clinical documentation to [facility] for review. Hermelinda HUNTLEY updated.
[2021-09-28 07:45] LABS: PATHOLOGY DIFF REVIEW OK +
== END 2021-09-26 12:44 | disposition home or self-care (01) | DRG 917 ==
LOC: COL.ER 21:27 → ICU 23:21 → MEDICAL 09-24 15:05
PROVIDERS: Emergency Medicine; Internal Medicine; Internal Medicine Pulmonary Disease; Physician Assistant; Student in an Organized Health Care Education/Training Program; ADMIT Internal Medicine
PROC: 0BH17EZ Insertion of Endotracheal Airway into Trachea, Via Natural or Artificial Opening (ICD-10-PCS; principal; 2021-09-17)
PROC: 5A1955Z Respiratory Ventilation, Greater than 96 Consecutive Hours (ICD-10-PCS; 2021-09-17)
PROC: 02HV33Z Insertion of Infusion Device into Superior Vena Cava, Percutaneous Approach (ICD-10-PCS; 2021-09-20)
DX: T42.6X2A Poisoning by other antiepileptic and sedative-hypnotic drugs, intentional self-harm, initial encounter (principal); J96.01 Acute respiratory failure with hypoxia; J69.0 Pneumonitis due to inhalation of food and vomit; G93.41 Metabolic encephalopathy; G95.0 Syringomyelia and syringobulbia; G90.3 Multi-system degeneration of the autonomic nervous system; G40.509 Epileptic seizures related to external causes, not intractable, without status epilepticus; R44.2 Other hallucinations; T42.8X2A Poisoning by antiparkinsonism drugs and other central muscle-tone depressants, intentional self-harm, initial encounter; D72.829 Elevated white blood cell count, unspecified; F32.9 Major depressive disorder, single episode, unspecified; F98.8 Other specified behavioral and emotional disorders with onset usually occurring in childhood and adolescence; G47.33 Obstructive sleep apnea (adult) (pediatric); R41.0 Disorientation, unspecified; B95.61 Methicillin susceptible Staphylococcus aureus infection as the cause of diseases classified elsewhere; Y92.89 Other specified places as the place of occurrence of the external cause; Z72.89 Other problems related to lifestyle
CPT/HCPCS: 99223-AI; 99232-AI; 99233-AI; C1751; J0330; J1650; J1953; J2060; J2310; J2405; J2543; J2704; J3010; J3475; J3480; J7030; J7120

== ENCOUNTER 2023-12-05 10:47 | Emergency (ER) | payer BC ==
[~2023-12-05] VITALS: Ht 172.7 cm; Wt 90.9 kg
[~2023-12-05 10:47] MED LIST changes: +AMOXICILLIN 8751 TAB PO; +CLARAVIS40 MG PO; +EFFEXOR XR75 MG/CAP PO; +KEPPRA250 MG PO; +LAMICTAL 25MG T25 MG PO; +LIORESAL 1010 MG/TAB PO; +LITHOBID 3300 MG/TAB PO; +NEURONTIN100 MG/CAP PO; +NEURONTIN600 MG/TAB PO; +VYVANSE40 MG PO; +ZENZEDI10 MG PO
[2023-12-05] MEDS ORDERED: fentaNYL 50 MCG/ML 2 ML VIAL IV ONE (11:30)
[2023-12-05] MEDS ORDERED: fentaNYL 50 MCG/ML 2 ML VIAL IV SCH (11:38)
[2023-12-05 12:31] VITALS: BP 111/80; PULSE 82
== END 2023-12-05 12:31 | disposition home or self-care (01) ==
LOC: COL.ER 10:47
DX: S43.004A Unspecified dislocation of right shoulder joint, initial encounter (principal); Z87.891 Personal history of nicotine dependence; X58.XXXA Exposure to other specified factors, initial encounter
CPT/HCPCS: J3010